=== PATIENT | female | born 1995 ===

== ENCOUNTER 2022-06-29 19:32 | Inpatient (IN) ==
[2022-06-29] MEDS ORDERED: LIDOCAINE 1% LOCAL 20 ML VIAL INFIL PRN (20:12)
[2022-06-29] MEDS ORDERED: OXYTOCIN 30 UNITS/500 ML BAG IV PRN ×2 (20:12→22:21)
[2022-06-29] MEDS: LACTATED RINGER'S 1,000 ML IV PRN ×2 (20:20→21:12)
--- NOTE | 2022-06-29 20:31 | History & Physical Report ---
Date of Service June 29, 2022 Assessment & Plan (1) : Plan: Admit to L&D. Will obtain labs, IV access. monitoring, COVID swab. Discussed with patient and shoe repairer helper that exam on arrival is different from what shoe repairer helper was examining prior to leaving - it seems that cervical lip has reduced and head has moved down to 2+ station in the pelvis. Patient would like a trial of pushing. She is undecided whether she would like to use an epidural and is thinking about this. Given Cat 1 FHT, I think it is reasonable to trial pushing again, however discussed with patient that if station does not improve or if there is distress, may need to deliver by . Admission and Anticipated Discharge Date Admission Date: June 29, 2022 History of Present Illness Chief Complaint: labor Primary Care Provider: TYLOR PCP 26yo @ 40 01/13 Presents with her shoe repairer helper and in labor. She started laboring last night and was planning for homebirth. She began to push earlier today - in review of shoe repairer helper records, she began pushing about noon today. From shoe repairer helper's description, she began pushing prior to complete cervical dilation - and attempts were made to reduce an anterior cervical lip. This apparently continued to come down below the head, and became swollen throughout the afternoon. Attempts to reduce the cervical lip were unsuccessful. She pushed Per shoe repairer helper, exam prior to coming to hospital was anterior lip, 1+ station. She then came by private vehicle, approximately [address] to [facility]. She received care with shoe repairer helper, and brought paper records. is complicated by chickenpox infection in 1st trimester. Was treated by PCP. Gestational diabetes screening - checked blood sugars x 2w, fasting 70-80s, 2h PP 70-110s. GBS negative 06/01/22 Initial labs done 01/27/22: WBC 14.7 Hgb 12.3 Hct 36.8 Plt 215 Blood type B+ Rubella non-immune RPR nonreactive HBsAg negative Did not have HIV, chlamydia/gonorrhea screening with labs, and declines these labs now also. Allergies Allergy/AdvReac Type Severity Reaction Status Date / Time No Known Allergies Allergy Unverified 06/29/22 20:30 Home Medications Medication Instructions Recorded Confirmed Type vit no.95-ferrous 1 tab PO DAILY 06/29/22 06/29/22 History fumarate 28 mg-folic acid 800 mcg tablet () Patient History Medical History (Updated 06/29/22 @ 20:36 by Barbie Varner DO) Chickenpox in 1st trimester Scoliosis Surgical History (Updated 06/29/22 @ 20:04 by Alanna Slade) No history of previous surgery Social History (Updated 06/29/22 @ 20:12 by Alanna Slade) Smoking Status: Never smoker Second Hand Exposure: No; Hx Alcohol Use: No Hx Substance Use: No Communication Ability: Effective Visual Impairment: No Limitations Hearing Ability: Normal Pin Inserter Required: No Beliefs That Will Affect Care: None marital status: marital status details: Richard Mathew Current Living Situation: Spouse current occupational status: employed current occupation: Self employed Other Information That Helps Us Care for You: No Feels Safe at Home: Yes Safety Concerns: Feels Safe At This Time Childhood Exposure to Second-Hand Smoke: No caffeine: No Dental Care, Regularly: Yes Sunscreen Use: Yes Do you think of yourself as: straight/heterosexual Gender Identity: Female Review of Systems All systems reviewed & are unremarkable except as noted in HPI & below Physical Exam Physical Exam: SVE complete dilation, caput, 2+ station. No palpable cervix. FHT Cat 1 [place] Q 3 min Constitutional: WD/WN, vitals as above Respiratory: normal respiratory effort, lungs clear to auscultation no respiratory distress Cardiovascular: Rate/Rhythm: regular rate and regular rhythm Gastrointestinal (Abdomen): Inspection/Auscultation: abdomen normal to inspection Percussion/Palpation: abdomen soft; abdomen nontender Gravid. No s/s chorio or abruption. Skin: no rashes, warm and dry Psychiatric: A+Ox3, euthymic affect Coding Level of Care Code None Diagnoses Z34.90
[2022-06-29] MEDS: Patient's ALLERGY Info needs ENTERED SCH (20:39)
[2022-06-29 20:50] LABS: Hematocrit (blood only) 35.5 % (34.1-44.9); Hemoglobin 12.7 g/dl (12.0-16.0); Mean Corpuscular Hemoglobin 32.1 pg (25.0-34.0); Mean Corpuscular Hgb Conc 35.8 g/dL (32.0-36.0); Mean Corpuscular Volume 89.6 fL (80.0-100.0); Mean Platelet Volume 10.2 fL (9.4-12.3); Platelet Count 164 K/uL (130-400); RDW Coefficient of Variation 12.8 % (11.5-14.5); RDW Standard Deviation 42.5 fL (36.4-46.3); Red Blood Count 3.96 M/uL (3.93-5.22); White Blood Count 25.62 K/ul (4.8-10.8)
--- NOTE | 2022-06-29 21:53 | Labor Progress Brief Note ---
Date of Service June 29, 2022 Subjective Patient is actively pushing with contractions. FHT Cat 1 [place] - irreg pattern, Q 2-5 min Fetus 2+ station. Good maternal effort. Assessment & Plan Admission and Anticipated Discharge Date Admission Date: June 29, 2022 Results & Data ([facility]) Vital Signs (Past 12 Hours) Vital Signs Temp Resp 06/29/22 20:13 36.5 C 22 Coding Level of Care Code None
--- NOTE | 2022-06-29 22:32 | Labor Progress Brief Note ---
Date of Service June 29, 2022 Subjective Patient had pushed for 1 hour - minimal progress, head still at 2+ station. FHT Cat 1 [place] Q 2-5 min. Discussed that contractions are not a very good labor pattern - would recommend starting pitocin to increase frequency and power of contractions. She discussed with and ramp and cargo supervisor, agreeable to pitocin. Her goal is to avoid a section and is therefore willing to use pitocin. Assessment & Plan Admission and Anticipated Discharge Date Admission Date: June 29, 2022 Results & Data ([facility]) Vital Signs (Past 12 Hours) Vital Signs Temp Resp 06/29/22 20:13 36.5 C 22 Coding Level of Care Code None
[2022-06-29] MEDS ORDERED: Nursing to Pharmacy Communication SCH (22:45)
[2022-06-30] MEDS: Patient's ALLERGY Info needs ENTERED SCH (00:01)
--- NOTE | 2022-06-30 01:24 | Labor Progress Brief Note ---
Date of Service June 30, 2022 Subjective Patient has now pushed for 4 hours. Contraction pattern has been Q2 minutes with pitocin. station has not progressed beyond 2+ station, and now seeing increasing caput swelling. FHT remain category 1 with ctx Q 2-4 minutes. I discussed with patient, , and caustic operator. Since baby is failing to descend, recommend delivery by section. She is agreeable to proceed, feeling like she has exhausted all options for labor. We reviewed consent, including risks of bleeding, scarring, infection, damage to bowel/bladder/uterus/baby/surrounding tissues and organs, blood clot/pneumonia. She is agreeable to blood transfusion if needed in an emergency. She, , and caustic operator all expressed that they were happy that she had been given the opportunity to exhaust all options prior to advancing to section. Assessment & Plan Admission and Anticipated Discharge Date Admission Date: June 29, 2022 Results & Data ([facility]) Vital Signs (Past 12 Hours) Vital Signs Temp Pulse Pulse Resp BP BP 06/30/22 01:17 109 H 122/56 L 06/30/22 00:03 36.9 C 83 18 132/67 06/29/22 19:52 134/88 06/29/22 21:06 105 H 119/77 06/29/22 22:20 20 06/29/22 22:20 37.0 C 85 20 120/67 06/29/22 23:03 20 06/29/22 23:03 76 20 127/65 06/29/22 22:20 37.0 C 85 20 120/67 06/29/22 20:13 36.5 C 22 Coding Level of Care Code None
[2022-06-30] MEDS ORDERED: LACTATED RINGER'S 1,000 ML IV SCH (01:30)
[2022-06-30] MEDS ORDERED: CITRIC ACID/SODIUM CITRATE 15 ML UDC ONE (01:38)
[2022-06-30] MEDS ORDERED: CITRIC ACID/SODIUM CITRATE 15 ML UDC PO ONE (01:45)
[2022-06-30] MEDS ORDERED: ceFAZolin 2000MG 2,000 MG/15 ML SYR IV ONE (01:45)
[2022-06-30] MEDS ORDERED: MoRPHine SULFATE PF 1 MG/ML 10 ML AMP/VIAL ONE (01:47)
--- NOTE | 2022-06-30 02:28 | Anesthesiology Consultation ---
Date of Service June 30, 2022 Assessment & Plan Chart Review Chart Review: Acceptable Risk for Surgery Consults Requested none History Surgery Operation Date: 06/30/22 02:00 Proposed Procedures p Section in LD - Barbie Varner DO Height/Weight Height: 5 ft 3 in Weight: 68.492 kg Allergies Allergy/AdvReac Type Severity Reaction Status Date / Time No Known Allergies Allergy Unverified 06/29/22 20:30 Medications Home Medications Medication Instructions Recorded Confirmed Last Taken vit no.95-ferrous 1 tab PO DAILY 06/29/22 06/29/22 06/28/22 21:00 fumarate 28 mg-folic acid 800 mcg tablet () Active Medications Generic Name Dose Route Start Last Admin Trade Name Freq PRN Reason Stop Dose Admin Lactated Ringer's 1,000 mls @ 125 mls/hr 06/29/22 20:12 06/29/22 21:12 Lr IV 07/01/22 20:11 125 mls/hr .Q8H PRN Administration L&D Protocol Protocol Oxytocin 30 units in 500 mls @ 0 mls/hr 06/29/22 22:21 06/30/22 01:02 Pitocin IV 07/01/22 22:20 0 units/hr .Q0M PRN 0 mls/hr Labor Induction/Augmentation Titration Protocol 0 UNITS/HR Lactated Ringer's 1,000 mls @ 999 mls/hr 06/30/22 01:30 06/30/22 01:38 Lr IV 06/30/22 02:30 999 mls/hr .Q1H1M SOFIYA Administration NPO Date Last Intake of Fluids: 06/29/22 Time Last Intake of Fluids: 23:00 Date Last Intake of Solids: 06/29/22 Time Last Intake of Solids: 08:00 Past Medical History Medical History (Updated 06/29/22 @ 20:36 by Barbie Varner DO) Chickenpox in 1st trimester Scoliosis Past Surgical History Surgical History (Updated 06/29/22 @ 20:04 by Alanna Slade) No history of previous surgery Social History Smoking Status: Never smoker Hx Alcohol Use: No Hx Substance Use: No substance use type: does not use Physical Exam Vital Signs Last Vital Signs Temp 36.7 C 06/30/22 01:30 Pulse 109 H 06/30/22 01:17 Resp 18 06/30/22 01:30 BP 122/56 L 06/30/22 01:17 Testing Laboratory Results 06/29/22 20:36 Blood Type B Positive 06/29/22 20:36 Antibody Screen NEGATIVE 06/29/22 20:36
[2022-06-30] MEDS ORDERED: NALOXONE HCL 1 MG in SODIUM CHLORIDE 0.9% 1000ML 1,000 ML IV PRN (02:30)
[2022-06-30] MEDS ORDERED: METOCLOPRAMIDE HCL 20 MG in SODIUM CHLORIDE 0.9% 50 ML IV PRN (02:30)
[2022-06-30] MEDS ORDERED: PROMETHAZINE HCL 25 MG in SODIUM CHLORIDE 0.9% 50 ML IV PRN ×2 (02:30→20:30)
[2022-06-30] MEDS ORDERED: KETOROLAC 30 MG/ML VIAL IV PRN ×2 (02:30→20:30)
[2022-06-30] MEDS ORDERED: MoRPHine SULFATE PF 1 MG/ML 10 ML AMP/VIAL INT SPINAL ONE (02:30)
[2022-06-30] MEDS ORDERED: SODIUM CHLORIDE 0.9% 1000ML 1,000 ML IV SCH (02:30)
[2022-06-30] MEDS ORDERED: NALBUPHINE HCL INJ 10 MG/ML AMP IV PRN (02:30)
[2022-06-30] MEDS ORDERED: ONDANSETRON INJ 2 MG/ML 2 ML VIAL IV PRN ×2 (02:30→20:30)
[2022-06-30] MEDS ORDERED: NALOXONE HCL 0.08 MG in SYRINGE 1.8 ML IV PRN (02:30)
[2022-06-30] MEDS ORDERED: ePHEDrine sulfate 50 MG/ML AMP IV PRN (02:30)
[2022-06-30] MEDS ORDERED: NO NARCOTICS OR SEDATIVES SCH (02:30)
[2022-06-30] MEDS ORDERED: HYDROmorphone INJ 0.5 MG/0.5 ML SYR IV PRN (02:30)
[2022-06-30] MEDS ORDERED: LACTATED RINGER'S 500 ML IV PRN (02:30)
[2022-06-30] MEDS ORDERED: NALOXONE HCL 0.4 MG/1 ML VIAL/CARP IV PRN (02:30)
[2022-06-30] MEDS ORDERED: DC INTRASPINAL MORPHINE SCH (02:30)
[2022-06-30] MEDS ORDERED: diphenhydrAMINE 50 MG/ML VIAL IV PRN ×2 (02:30→20:30)
[2022-06-30] MEDS ORDERED: OXYTOCIN 10 UNITS/ML 10ML VIAL ONE ×2 (02:52→03:09)
[2022-06-30] MEDS ORDERED: PHENYLEPHRINE 100MCG/ML 5ML SYR ONE (02:52)
[2022-06-30 03:24] LABS: Base Excess Cord Venous Blood -2.9 mEq/L (-7.7-1.9); CO2 Cord Arterial Blood 52 mmHg (39.1-73.5); Cord Venous Blood HCO3 23 mmol/L (18.4-26.8); Cord Venous Blood PCO2 41 mmHg (30.4-57.2); Cord Venous Blood PO2 30 mmHg (14.1-43.3); Cord Venous Blood pH 7.35 (7.20-7.44); HCO3 Cord Arterial Blood 24 mmol/L (19.7-28.5); O2 Saturation Cord Venous Bld < 60.0 % (<68); Oxygen Sat Cord Arterial Blood < 60.0 % (<60); PO2 Cord Arterial Blood 15 mmHg (4.1-31.7); pH Cord Arterial Blood 7.28 (7.1-7.38)
--- NOTE | 2022-06-30 03:39 | Operative Report ---
PG Post Operative Report Pre & Post Diagnosis Operation Date: 06/30/22 02:00 Pre-Op Diagnosis: 1.) Arrest of Descent Post-Op Diagnosis: Same as Pre Op I identified the patient and participated in the time-out.: Yes Procedure Operation Date: 06/30/22 02:00 Primary low transverse section Surgeon Barbie Varner DO Circular Stuffer Alanna Slade RN Estimated Blood Loss 600 Findings Consistent with Post-Op Diagnosis Normal appearing uterus, fallopian tubes, ovaries. Viable female , Apgars 9/9, Weight 7#2.4oz. Specimens placenta, cord blood, cord gas Drains matute clear yellow Anesthesia Type Spinal Complications none Disposition Accompanied Patient To Recovery: Yes Disposition: L&D Indications 26yo @ 40 5/7 with failure to descend after 4+ hours of pushing. She was attempting a home , pushed at home off and on throughout the afternoon, per digital analytics manager's description there was a thick anterior cervical lip that was sometimes able to be reduced, and other times present. She then presented to L&D and was completely dilated and 2+ station on arrival. FHT Cat 1 on arrival, and she elected to trial pushing again now that she was confirmed to be completely dilated with no evidence of the anterior cervical lip. She pushed for 4+ hours, with the addition of pitocin partway through pushing, in an effort to increase f requency and strength of contractions. head was unable to descend beyond 2+ station, therefore delivery by section was recommended. Patient agreed, and we went to the OR. Description of Procedure The patient was seen in her labor and delivery room, risks benefits and alternatives to surgery were reviewed. Informed consent obtained. Questions were answered. She was taken to the operating room, spinal anesthesia was administered. She was then prepared and draped in the usual sterile fashion in the supine position with a leftward tilt. Timeout was confirmed. A Pfannenstiel skin incision was made with a scalpel, and carried through to the underlying layer of fascia. Fascia was nicked at midline, and this incision was extended bilaterally. The superior aspect of the fascial incision was grasped with Seb clamps x2, elevated off the underlying rectus abdominis muscles, and dissected sharply and bluntly. In similar fashion, the inferior aspect of the fascial incision was dissected. The rectus abdominis muscles were , and the peritoneum was entered bluntly digitally. This was extended bilaterally. The bladder flap was taken down carefully sharply Using a new scalpel, a low transverse uterine incision was created. Clear amniotic fluid noted. The infant was delivered from a cephalic presentation. The head delivered, followed by shoulders and body. Spontaneous cry on the field. The cord was doubly clamped and cut, and the infant was handed off to the waiting sewer. A segment was retained for cord gases. Cord blood was obtained. The placenta was delivered spontaneously intact. The uterus was exteriorized, and cleared of all clots and debris. The hysterotomy incision was reapproximated using 0 Vicryl in a running locked stitch. A second layer of the same suture was used to imbricate the incision. Posterior uterus was evaluated and normal. The uterus was returned to the abdomen, and gutters were cleared of clots and debris. Excellent hemostasis was observed. The fascial incision was reapproximated using 0 Vicryl in a running stitch. The subcutaneous tissue was irrigated, and reapproximated using 2-0 plain gut in a running stitch. The skin was reapproximated using 4-0 Monocryl in a running subcuticular stitch. Steri-Strips and a bandage were applied. The patient tolerated the procedure well, and will be taken to the recovery area in stable and good condition. Sponge, needle, and instrument counts were correct x 2 at the conclusion of the case. I discussed with patient the findings during surgery - that I suspect both positioning and maternal pelvis shape to be contributors to failure to descend. I do not know how likely she is to be successful with a future vaginal delivery - discussed that the failure to descend history puts her at a disadvantage to a successful . If she does choose to attempt in the future, I recommend that she labor in a hospital and not attempt a home . I attest to the content of the Intraoperative Record and any orders documented therein. Any exceptions are noted below. OB Procedure Charges 29833
[2022-06-30] MEDS ORDERED: BENZOCAINE 20% AER SPR 82.5 GM CAN EXT PRN (03:49)
[2022-06-30] MEDS ORDERED: SENNA 8.6 MG TAB PO PRN (03:49)
[2022-06-30] MEDS ORDERED: MEASLES, MUMPS & RUBELLA VIRUS VIAL SQ ONE (03:49)
[2022-06-30] MEDS ORDERED: MAGNESIUM HYDROXIDE SUSP 30 ML UDC PO PRN (03:49)
[2022-06-30] MEDS ORDERED: HYDROCORTISONE ACETATE 25 MG SUPP PR PRN (03:49)
[2022-06-30] MEDS ORDERED: DIPHTHERIA/TETANUS/PERTUSSIS 0.5 ML SYR/VIAL IM ONE (03:49)
[2022-06-30] MEDS ORDERED: OXYTOCIN 30 UNITS in LACTATED RINGER'S 1,000 ML IV SCH (04:00)
--- NOTE | 2022-06-30 04:24 | Anesthesiology Progress Note ---
Date of Service June 30, 2022 Anesthesia Post Procedure Vital Signs Vital Signs: Temp Pulse Pulse Resp BP BP Pulse Ox 06/30/22 04:22 18 06/30/22 04:12 18 06/30/22 04:02 18 06/30/22 03:52 18 06/30/22 03:42 18 06/30/22 03:32 36.5 C 18 06/30/22 04:18 100 H 97 06/30/22 04:13 115 H 97 06/30/22 04:12 127 H 102/57 L 06/30/22 04:08 97 06/30/22 04:08 113 H 06/30/22 04:08 109 H 91 06/30/22 04:03 97 06/30/22 04:03 102 H 06/30/22 04:03 91 H 112/57 L 06/30/22 03:58 109 H 96 06/30/22 03:53 94 H 97 06/30/22 03:52 98 H 113/53 L 06/30/22 03:48 110 H 99 06/30/22 03:43 96 H 98 06/30/22 03:42 100 H 94/51 L 06/30/22 03:38 98 H 98 06/30/22 03:33 94 H 98 06/30/22 03:32 93 H 98/51 L 06/30/22 01:30 18 06/30/22 01:30 36.7 C 18 06/30/22 01:17 109 H 122/56 L 06/30/22 00:03 36.9 C 83 18 132/67 06/29/22 19:52 134/88 06/29/22 21:06 105 H 119/77 06/29/22 22:20 20 06/29/22 22:20 37.0 C 85 20 120/67 06/29/22 23:03 20 06/29/22 23:03 76 20 127/65 06/29/22 22:20 37.0 C 85 20 120/67 06/29/22 20:13 36.5 C 22 Transfer of Care Handoff Completed per policy Notes Mental Status: alert / awake / arousable and participated in evaluation Nausea / Vomiting: adequately controlled Pain: adequately controlled Airway Patency, RR, SpO2: stable & adequate BP & HR: stable & adequate Hydration State: stable & adequate Neuraxial Anesthesia: was administered and sensory block is resolving Anesthetic Complications: no major complications apparent and Pt Satisfied with anesthetic care
[2022-06-30 06:49] LABS: Hematocrit (blood only) 31.2 % (34.1-44.9); Hemoglobin 11.1 g/dl (12.0-16.0)
[2022-06-30] MEDS: DOCUSATE SODIUM 100 MG CAP PO SCH ×2 (09:39→20:31)
[2022-06-30] MEDS: SIMETHICONE 80 MG CHEW PO SCH ×4 (09:39→20:30)
[2022-06-30] MEDS: FERROUS SULFATE 325 MG TAB PO SCH (09:39)
[2022-06-30] MEDS: PRENATAL VITAMIN 1 TAB PO SCH (09:39)
[2022-06-30] MEDS: LACTATED RINGER'S 1,000 ML IV SCH ×2 (14:20→21:57)
[2022-06-30] MEDS ORDERED: diphenhydrAMINE Capsule 25 MG CAP PO PRN (20:30)
--- NOTE | 2022-07-01 05:07 | Obstetrical Progress Note ---
Date of Service July 01, 2022 Assessment & Plan (1) delivery delivered: Plan - Feeling very tired today and consuming clear liquids, planning to advance today as tolerated - feeding going well without concern, using nipple shield, no breast pain - Urinating and passing gas appropriately - Some ambulation to bathroom - Pain controlled w/ Toradol - Continue routine care - Following blood pressure and hemoglobin (9.7 07/01) - Will remove surgical bandages at 24 hours. Admission and Anticipated Discharge Date Admission Date: June 29, 2022 Supervising Physician Co-Signing Physician Notes Resident Physician Supervision Note: I interviewed and examined the patient. Discussed with Dr. Rock and agree with findings and plan as documented in the note. Any exceptions or clarifications are listed here: Hgb 9.7 this morning, patient with mild tachy per RN overnight but has been able to ambulate to bathroom without difficulty and blood loss / Hgb this morning are appropriate. Continue observation, encourage PO hydration. Documented By: Zandra Buckner MD, FACOG Subjective Today 07/01: Patient is a 26 y/o female who is POD #1 following primary C/s at 40w4d. Patient endorses some weakness and fatigue today, but has not experienced any syncopal events with ambulation. - Ambulation - light, to bathroom - Voiding/Lewis - independently voiding, no dysuria - Gas/Stool - passing gas, no bowel movement - Diet - liquids, will attempt to advance today, no appetite, no nausea or emesis - Lochia - moderate at last bathroom attempt, unsure at present - Feeding Type - breast feeding well - Pain Level - 2/10, receiving Toradol Review of Systems - Denies fever, chills, sweats - Denies shortness of breath, difficulty breathing, chest pain, palpitations, chest pressure. - Denies breast pain. - Denies dysuria. - Denies headache or changes in vision. - Endorses mild cramp in right calf, not reproducible, no swelling Physical Exam Physical Exam: General: Alert, oriented. No acute distress. Cardiac: RRR, normal S1/S2, no murmurs/rubs/gallops. Respiratory: Non-labored, CTAB, no wheezes/rales/rhonchi. Symmetric chest rise. Abdomen: Soft, nontender, nondistended. Bowel sounds present. Uterus: Uterine fundus firm, palpable 2 cm below umbilicus. Bandages present surrounding incision. No erythema or TTP. Lower Extremities: No lower extremity edema or swelling. No deep calf pain. Jeanine's negative bilaterally. Results & Data ([facility]) Vital Signs (Past 12 Hours) Vital Signs Temp Pulse Resp BP BP Pulse Ox O2 Del Method 06/30/22 23:40 37 C 105 H 18 102/58 L 98 Room Air 06/30/22 20:30 16 97 06/30/22 19:30 16 98 06/30/22 19:31 36.9 C 118 H 16 110/70 98 Room Air 06/30/22 17:30 18 95 06/30/22 17:11 36.9 C 115 H 18 108/64 97 Room Air Resident Activity Tracking Resident Involvement: Resident Care Provided Care Provided: OB Delivery
[2022-07-01 06:50] LABS: Basophils # (auto) 0.03 K/uL (0-0.2); Basophils % (auto) 0.2 %; Eosinophils # (auto) 0.03 K/uL (0-0.50); Eosinophils % (auto) 0.2 %; Hematocrit (blood only) 28.1 % (34.1-44.9); Hemoglobin 9.7 g/dl (12.0-16.0); Immature Granulocytes % (auto) 0.8 %; Lymphocytes # (auto) 1.45 K/uL (1.2-3.4); Lymphocytes % (auto) 11.4 %; Mean Corpuscular Hemoglobin 31.7 pg (25.0-34.0); Mean Corpuscular Hgb Conc 34.5 g/dL (32.0-36.0); Mean Corpuscular Volume 91.8 fL (80.0-100.0); Mean Platelet Volume 9.8 fL (9.4-12.3); Monocytes # (auto) 1.17 K/uL (0.24-0.82); Monocytes % (auto) 9.2 %; Neutrophils # (auto) 9.94 K/uL (1.4-6.5); Neutrophils % (auto) 78.2 %; Platelet Count 150 K/uL (130-400); RDW Coefficient of Variation 13.4 % (11.5-14.5); RDW Standard Deviation 44.8 fL (36.4-46.3); Red Blood Count 3.06 M/uL (3.93-5.22); White Blood Count 12.72 K/ul (4.8-10.8)
[2022-07-01] MEDS: SIMETHICONE 80 MG CHEW PO SCH ×4 (08:22→20:44)
[2022-07-01] MEDS: FERROUS SULFATE 325 MG TAB PO SCH (08:22)
[2022-07-01] MEDS: DOCUSATE SODIUM 100 MG CAP PO SCH ×2 (08:22→20:44)
[2022-07-01] MEDS: PRENATAL VITAMIN 1 TAB PO SCH (08:22)
[2022-07-01] MEDS: IBUPROFEN 600 MG TAB PO PRN ×2 (10:12→20:44)
[2022-07-01] MEDS: LACTATED RINGER'S 1,000 ML IV SCH (12:58)
[2022-07-01] MEDS ORDERED: bisacodyL 5 MG TABEC PO SCH (20:00)
[2022-07-02] MEDS ORDERED: bisacodyL 10 MG SUPP PR PRN (03:31)
[2022-07-02 06:46] LABS: Hematocrit (blood only) 29.3 % (34.1-44.9)
--- NOTE | 2022-07-02 07:29 | Obstetrical Progress Note ---
Date of Service July 02, 2022 Assessment & Plan (1) delivery delivered: Plan - Patient is feeling well today and wishing to go home - feeding going well without concern - Urinating and passing gas appropriately - Ambulation around room - Pain controlled w/ Toradol - Continue routine care - Incision clean and dry, no purulence or erythema - Hgb 10 07/02 - Anticipating discharge today Admission and Anticipated Discharge Date Admission Date: June 29, 2022 Supervising Physician Co-Signing Physician Notes Resident Physician Supervision Note: I was present with Dr. Rock during the history and exam. I discussed the case with the resident and agree with the findings and plan as documented in the note. Any exceptions or clarifications are listed here: [None] Documented By: Anson García MD, FACOG Subjective Today 07/02: Patient is a 26 y/o female who is POD #2 following primary C/s at 40w4d. Patient is feeling well today and wishes to go home. - Ambulation - ambulation throughout room - Voiding/Lewis - independently voiding, no dysuria - Gas/Stool - passing gas, no bowel movement - Diet - regular diet, no nausea or emesis - Lochia - light amount - Infant Feeding Type - breast feeding well, pumping, no concerns - Pain Level - 4/10 Review of Systems - Denies fever, chills, sweats - Denies shortness of breath, difficulty breathing, chest pain, palpitations, c hest pressure. - Denies breast pain. - Denies dysuria. - Denies headache or changes in vision. - Endorses mild cramp in right calf, not reproducible, no swelling Physical Exam Physical Exam: General: Alert, oriented. No acute distress. Cardiac: RRR, normal S1/S2, no murmurs/rubs/gallops. Respiratory: Non-labored, CTAB, no wheezes/rales/rhonchi. Symmetric chest rise. Abdomen: Soft, nontender, nondistended. Bowel sounds present. Uterus: Uterine fundus firm, palpable 2 cm below umbilicus. Incision clean and dry, no erythema, ecchymosis, or purulence. Lower Extremities: No lower extremity edema or swelling. No deep calf pain. Jeanine's negative bilaterally. Results & Data ([facility]) Vital Signs (Past 12 Hours) Vital Signs Temp Pulse Resp BP Pulse Ox O2 Del Method 07/01/22 23:11 37 C 90 18 118/72 97 Room Air 07/01/22 20:44 37.2 C 90 18 114/73 Resident Activity Tracking Resident Involvement: Resident Care Provided Care Provided: OB Delivery
[2022-07-02] MEDS: oxyCODONE/ACETAMINOPHEN 5mg/325mg TAB PO PRN ×4 (08:34→21:57)
[2022-07-02] MEDS: PRENATAL VITAMIN 1 TAB PO SCH (08:34)
[2022-07-02] MEDS: FERROUS SULFATE 325 MG TAB PO SCH (08:34)
[2022-07-02] MEDS: DOCUSATE SODIUM 100 MG CAP PO SCH ×2 (08:34→20:41)
[2022-07-02] MEDS: SIMETHICONE 80 MG CHEW PO SCH ×4 (08:34→20:41)
[2022-07-02] MEDS: IBUPROFEN 600 MG TAB PO PRN ×4 (08:35→21:57)
== END 2022-07-02 22:00 | disposition home or self-care (01) | DRG 788 ==
LOC: 4S1 19:32 → 4E2 06-30 05:40